=== PATIENT | male | born 1985 ===

== ENCOUNTER 2016-07-25 17:09 | Emergency (ER) | payer OTHER ==
[2016-07-25 17:14] VITALS: BP 135/75; PULSE 88; RESP 20; TEMP 98.9; O2SAT 98
--- NOTE | 2016-07-25 17:33 | ED PDOC ---
Lower Extremity Pain/Injury Time Seen by Provider: 07/25/16 17:11 Chief Complaint (Nursing): Lower Extremity Problem/Injury History Per: Patient (brought in by EMS after he stepped on loose gravel on pavement and turned his ankle both ways. He is in significant pain and discomfort. He denies LOC.) History/Exam Limitations: no limitations Onset/Duration Of Symptoms: Sudden Onset Current Symptoms Are (Timing): Still Present Severity: Moderate Pain Scale Rating Of: 9 - Ankle/Foot Description Of Injury: Twisted Currently Unable To: Bear Weight Alleviating Factor(s): Ice Therapy Past Medical History Reviewed: Historical Data, Nursing Documentation, Vital Signs Vital Signs: Last Vital Signs Temp 98.9 F 07/25/16 17:11 Pulse 88 07/25/16 17:11 Resp 20 07/25/16 17:11 BP 135/75 07/25/16 17:11 Pulse Ox 98 07/25/16 17:11 - Medical History PMH: Anxiety, Depression, Sleep Apnea - Surgical History Other surgeries: gastric sleeve - Family History Family History: States: Unknown Family Hx - Living Arrangements Living Arrangements: With Family - Immunization History Hx Tetanus Toxoid Vaccination: No Hx Influenza Vaccination: No - Home Medications Home Medications: Ambulatory Orders Medication Instructions Recorded Naproxen 500 mg PO Q12 PRN #20 tab 03/18/14 oxyCODONE/Acetaminophen [Percocet 2 tab PO Q6 PRN #16 tab 03/18/14 5/325 mg Tab] Acetaminophen [Tylenol 325mg tab] 650 mg PO Q6H PRN #50 tab 07/25/16 Naproxen [Naprosyn] 500 mg PO BID PRN #20 tablet 07/25/16 - Allergies Allergies/Adverse Reactions: Allergies Allergy/AdvReac Type Severity Reaction Status Date / Time No Known Allergies Allergy Verified 07/25/16 17:10 Review of Systems ROS Statement: Except As Marked, All Systems Reviewed And Found Negative Cardiovascular: Negative for: Chest Pain Musculoskeletal: Positive for: Foot Pain (ankle pain) Psych: Positive for: Anxiety, Depression Physical Exam - Reviewed Nursing Documentation Reviewed: Yes Vital Signs Reviewed: Yes - Physical Exam Appears: Positive for: Well, Non-toxic, No Acute Distress, Uncomfortable Head Exam: Positive for: ATRAUMATIC, NORMAL INSPECTION, NORMOCEPHALIC Skin: Positive for: Normal Color, Warm, DRY Eye Exam: Positive for: Normal appearance Neck: Positive for: Normal Cardiovascular/Chest: Positive for: Regular Rate, Rhythm Respiratory: Positive for: CNT, Normal Breath Sounds Gastrointestinal/Abdominal: Positive for: Soft. Negative for: Distended Back: Positive for: Normal Inspection Extremity: Positive for: Tenderness, Swelling Neurologic/Psych: Positive for: Alert, Oriented - ECG O2 Sat by Pulse Oximetry: 98 - Radiology X-Ray: Viewed By Me X-Ray Interpretation: No Acute Disease - Progress Re-evaluation Time: 18:53 Condition: Re-examined, Improving,but remains with symptoms Disposition - Clinical Impression Clinical Impression: Ankle sprain and strain - Patient ED Disposition Is Patient to be Admitted: No Doctor Will See Patient In The: Office Counseled Patient/Family Regarding: Diagnosis, Need For Followup, Rx Given - Disposition Referrals: [facility] [Outside] [facility] [Outside] Disposition: Routine/Home Disposition Time: 18:54 Condition: STABLE Prescriptions: Acetaminophen [Tylenol 325mg tab] 650 mg PO Q6H PRN #50 tab PRN Reason: Pain, Mild (1-3) Naproxen [Naprosyn] 500 mg PO BID PRN #20 tablet PRN Reason: Pain, Moderate (4-7) Instructions: Ankle Sprain (ED) - POA Present On Arrival: Falls Or Trauma
--- NOTE | 2016-07-26 10:12 | RAD ---
PROCEDURE: Right Foot Radiographs. HISTORY: slip and twist COMPARISON: None. FINDINGS: BONES: Normal. No fracture. JOINTS: Normal. SOFT TISSUES: Normal. OTHER FINDINGS: None. IMPRESSION: No radiographic evidence of acute fracture or dislocation.
--- NOTE | 2016-07-26 13:42 | RAD ---
PROCEDURE: Right Ankle Radiographs. HISTORY: slip and twist COMPARISON: None FINDINGS: BONES: Normal. No fracture. JOINTS: Normal. No osteoarthritis. Ankle mortise maintained. Talar dome intact SOFT TISSUES: [id number] soft tissue swelling. OTHER FINDINGS: None. IMPRESSION: No evidence of acute fracture or dislocation.
== END 2016-07-25 20:00 | disposition home or self-care (01) ==
LOC: H.ER 17:09
DX: S93.401A Sprain of unspecified ligament of right ankle, initial encounter (principal); X50.9XXA Other and unspecified overexertion or strenuous movements or postures, initial encounter; Y92.410 Unspecified street and highway as the place of occurrence of the external cause; G47.30 Sleep apnea, unspecified; F41.9 Anxiety disorder, unspecified